=== PATIENT | female | born 1975 | race Caucasian/White ===

== ENCOUNTER 2018-12-07 17:42 | Emergency (ER) | payer OTHER ==
[2018-12-07] MEDS ORDERED: LIDOCAINE 1% INJ-PF (10 MG/ML) 30 ML SDV INJ ONE (19:09)
[2018-12-07] MEDS ORDERED: OXYCODONE-ACETAMINOPHEN 5-325 MG TABLET PO ONE (19:33)
--- NOTE | 2018-12-07 19:43 | ER Document Report ---
HPI - HPI Time Seen by Provider: 12/07/18 18:45 Pain Level: 3 Notes: Patient is a 43-year-old female presenting to the emergency department after sustaining a fall injury. 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 - REPRODUCTIVE Reproductive: DENIES: : - MUSCULOSKELETAL Musculoskeletal: REPORTS: Extremity pain Past Medical History - General Information source: Patient - Social History Smoking Status: Never Smoker Frequency of alcohol use: None Drug Abuse: None Family History: Reviewed & Not Pertinent Patient has suicidal ideation: No Patient has homicidal ideation: No - Medical History Medical History: Negative Renal/ Medical History: Denies: Hx Peritoneal Dialysis Surgical Hx: Negative - Immunizations Immunizations up to date: Yes Hx Diphtheria, Pertussis, Tetanus Vaccination: Yes Vertical Provider Document - CONSTITUTIONAL Notes: PHYSICAL EXAMINATION: GENERAL: Well-appearing, well-nourished and in no acute distress. HEAD: Atraumatic, normocephalic. EYES: Pupils equal round extraocular movements intact, conjunctiva are normal. ENT: Nares patent NECK: Normal range of motion LUNGS: No respiratory distress Musculoskeletal: Normal range of motion to all extremities. NEUROLOGICAL: Normal speech, normal gait. PSYCH: Normal mood, normal affect. SKIN: 1.5 cm laceration noted over the anterior right lower extremity just distal to the knee. This approximates well and there is no active bleeding noted. Subcutaneous tissue is noted. - INFECTION CONTROL TRAVEL OUTSIDE OF THE [place] IN LAST 30 DAYS: No Course - Re-evaluation Re-evalutation: X-ray was negative for any acute findings. Laceration was repaired under sterile seen technique, see procedure note. Patient tolerated well. Patient will be given an Robles wrap for protection of the laceration. Patient will be placed on crutches in a wheelchair prescription will be written as patient will not be able to use her prosthesis due to the laceration at the end of her stump. - Vital Signs Vital signs: Temp Pulse Resp BP Pulse Ox 97.8 F 112 H 16 125/76 97 12/07/18 18:11 12/07/18 18:11 12/07/18 18:11 12/07/18 18:11 12/07/18 18:11 Procedures - Laceration/Wound Repair Right leg Wound length (cm): 1.5 Wound's Depth, Shape: Superficial Laceration pre-procedure: Sterile PPE donned Anesthetic type: 1% Lidocaine Wound explored: Clean Wound Debrided: Minimal Wound Repaired With: Sutures Suture Size/Type: 4:0 Layer Closure?: No Post-procedure wound care: Sterile dressing applied Post-procedure NV exam normal: Yes Discharge - Discharge Clinical Impression: Laceration Right leg injury Qualifiers: Encounter type: initial encounter Qualified Code(s): S89.91XA - Unspecified injury of right lower leg, initial encounter Condition: Stable Disposition: HOME, SELF-CARE Additional Instructions: Laceration Care Your laceration has been sutured to keep the skin edges aligned during healing. The time of suture removal depends on the nature and location of your cut. Please follow the care instructions the doctor has outlined for you and return for further care, according to the schedule you've been given. Keep the wound and dressing clean. Unless you were told otherwise, you may shower daily, blotting the wound dry with a clean, unused towel. At other times, If the dressing gets wet or blood soaked, remove it and blot the wound dry, then reapply a new dressing. Unless you were instructed otherwise, dressings should be changed at least daily. If any signs of infection occur (swelling, redness, increasing tenderness, red streaks, tender lumps in the armpit or groin above the laceration, or fever), see the doctor immediately. Please return to the emergency department or your primary care provider in 12-14 days for suture removal. The x-ray was negative for any fracture or dislocation. Please return earlier if you develop any signs of infection such as increased redness, swelling, foul-smelling drainage or fever. Prescriptions: Doxycycline Hyclate 100 mg PO BID #14 tablet. Oxycodone HCl/Acetaminophen [Percocet 5-325 mg Tablet] 1 tab PO Q4H PRN #8 tablet PRN Reason: Wheelchair 1 each [facility] ASDIR #1 each Forms: Special Work Note
--- NOTE | 2018-12-07 20:08 | RADIOLOGY REPORT (SQ) ---
EXAM DESCRIPTION: XR TIBIA FIBULA 2 VIEWS COMPLETED DATE/TME: 12/07/2018 19:11 CLINICAL HISTORY: 43 years, Female, eval for fracture at stump site, fall, laceration COMPARISON: None. NUMBER OF VIEWS: 2 TECHNIQUE: Two views of the knee were obtained in AP and lateral projection. LIMITATIONS: None. FINDINGS: No fracture or dislocation. The joint spaces are preserved. Osteotomy margins are intact. No clear findings to suggest soft tissue abnormality. IMPRESSION: No acute radiographic abnormality. copyright 2010 [employer] [employer]- All Rights Reserved
[2018-12-07 20:43] VITALS: BP 141/93
== END 2018-12-07 20:57 | disposition home or self-care (01) ==
LOC: ER 17:42
PROC: 0HQKXZZ Repair Right Lower Leg Skin, External Approach (ICD-10-PCS; principal; 2018-12-07)
DX: S89.91XA Unspecified injury of right lower leg, initial encounter (principal); G54.6 Phantom limb syndrome with pain; Z89.511 Acquired absence of right leg below knee; W19.XXXA Unspecified fall, initial encounter
CPT/HCPCS: 99283; 73590; 12001; J3490